=== PATIENT | male | born 1990 | race American Indian/Alaskan Native ===

== ENCOUNTER 2021-08-21 03:24 | Emergency (ER) | payer SELFPAY ==
[2021-08-21] MEDS ORDERED: METOCLOPRAMIDE 10 MG/2 ML INJ IV STA (04:33)
[2021-08-21] MEDS ORDERED: KETOROLAC 30 MG/1 ML INJ IV STA (04:33)
[2021-08-21] MEDS ORDERED: SODIUM CHLORIDE 0.9% 1000 ML 1,000 ML IV ONE (04:33)
[2021-08-21] MEDS ORDERED: diphenhydrAMINE 50 MG/ML VIAL IV STA (04:33)
--- NOTE | 2021-08-21 04:35 | Emergency Department Report ---
ED Headache HPI - General Chief Complaint: Chest Pain Stated Complaint: HEAD/STOMACH PAIN DEPRESSION Time Seen by Provider: 08/21/21 04:30 Source: patient - History of Present Illness Timing/Duration: 1 week, waxing and waning Quality: mild, moderate Head Injury Location: frontal, occipital Recent Head Trauma: frequent headaches Associated Symptoms: nausea/vomiting, other (Dizziness). denies: fatigue, f ever/chills, flushing, vision changes, weakness Allergies/Adverse Reactions: Allergies No Known Allergies Allergy (Unverified 08/21/21 03:53) Home Medications: Ambulatory Orders Hyoscyamine Subl [Levsin Sl 0.125 TAB] 0.125 mg SL Q4HR PRN #14 tablet 08/21/21 Ketorolac [Toradol] 10 mg PO Q6H PRN #14 tablet 08/21/21 ED Review of Systems ROS: Stated complaint: HEAD/STOMACH PAIN DEPRESSION Other details as noted in HPI Comment: All other systems reviewed and negative ED Past Medical Hx - Past Medical History Previous Medical History?: Yes Hx Psychiatric Treatment: Yes (Depression Bipolar) - Surgical History Past Surgical History?: No - Medications Home Medications: Home Medications Medication Instructions Recorded Confirmed Last Taken Type Hyoscyamine Subl [Levsin Sl 0.125 0.125 mg SL Q4HR PRN #14 tablet 08/21/21 Unknown Rx TAB] Ketorolac [Toradol] 10 mg PO Q6H PRN #14 tablet 08/21/21 Unknown Rx ED Physical Exam - General Limitations: No Limitations General appearance: alert, in no apparent distress - Head Head exam: Present: atraumatic, normocephalic - Eye Eye exam: Present: normal appearance, PERRL, EOMI. Absent: scleral icterus, nystagmus, periorbital swelling Pupils: Present: normal accommodation - ENT ENT exam: Present: normal exam, normal orophraynx, mucous membranes moist - Neck Neck exam: Present: normal inspection, full ROM. Absent: tenderness, meningismus - Respiratory Respiratory exam: Present: normal lung sounds bilaterally. Absent: respiratory distress, wheezes, rales, decreased breath sounds - Cardiovascular Cardiovascular Exam: Present: regular rate, normal rhythm. Absent: systolic murmur, diastolic murmur, rubs, gallop - GI/Abdominal GI/Abdominal exam: Present: soft, tenderness (Diffuse), normal bowel sounds. Absent: guarding, rebound, hyperactive bowel sounds, bruit - Rectal Rectal exam: Present: deferred - Extremities Exam Extremities exam: Present: normal inspection, normal capillary refill - Back Exam Back exam: Present: normal inspection. Absent: CVA tenderness (R), CVA tenderness (L) - Neurological Exam Neurological exam: Present: alert, oriented X3, CN II-XII intact - Expanded Neurological Exam Expanded Cerebellar function: Romberg: Normal Best Eye Response ([place]): (4) open spontaneously Best Motor Response ([place]): (6) obeys commands Best Verbal Response ([place]): (5) oriented [place] Total: 15 - Psychiatric Psychiatric exam: Present: normal affect, normal mood - Skin Skin exam: Present: warm, dry, intact, normal color. Absent: rash ED Course Vital Signs 08/21/21 05:49 Respiratory 18 Rate ED Medical Decision Making - Lab Data Result diagrams: 08/21/21 05:00 08/21/21 05:00 - Radiology Data Radiology results: [place] [address] Cat Scan Report Signed Patient: KAITLIN CONNELL MR#: [id number] : 1990 Acct:[id number] Age/Sex: 31 / M ADM Date: 08/21/21 Loc: ED Attending Dr: Ordering Physician: BRAD MAYO Date of Service: 08/21/21 Procedure(s): CT head/brain wo con Accession Number(s): [id number] cc: BRAD MAYO CT HEAD WITHOUT CONTRAST INDICATION / CLINICAL INFORMATION: severe headache. TECHNIQUE: All CT scans at this location are performed using CT dose reduction for ALARA by means of automated exposure control. COMPARISON: None available. FINDINGS: No acute intracranial hemorrhage. Ventricles are normal in size without midline shift or mass effect. No extra-axial fluid collection is seen. Visualized orbits appear normal. ADDITIONAL FINDINGS: None. IMPRESSION: 1. No acute intracranial abnormality. Signer Name: Danilo Calle MD Signed: 08/21/2021 5:39 AM Workstation Name: [id number] Transcribed By: CW Dictated By: EVENS CALLE MD Electronically Authenticated By: EVENS CALLE MD Signed Date/Time: 08/21/21538 DD/ 7 TD/TT: Print Cancel - Medical Decision Making Problem 1 headache This patient presents with a headache most consistent with nonemergent headache. Differential diagnosis includes migraine versus tension type headache. No headache red flags. Neurologic exam without evidence of meningismus, focal neurologic findings.Based on the patient's history and physical there is very low clinical suspicion for significant intracranial pathology. The headache was NOT sudden onset, NOT maximal at onset, there are NO neurologic findings, the patient does NOT have a fever, the patient does NOT have any jaw claudication, the patient does NOT endorse a clotting disorder, patient DENIES any trauma or eye pain and the headache is NOT associated with dizziness or ataxia. Presentation not consistent with acute intracranial bleed to include SAH (lack of risk factors, headache history). Presentation not consistent with acute HEADER DOCK infection to include meningitis or brain abscess, Temporal arteritis unlikely, as is acute angle closure glaucoma given history and physical findings. Presentation not consistent with other acute, emergent causes of headache at is time. Plan to treat symptomatically with pain medication. No indication for imaging/LP at this time. Plan: pain medication, serial reassessment Problem 2 nausea The cause of the patient symptoms not clear but the patient is overall well- appearing and suspected to have a transient course of illness. Given the course and examination does not appear to be an emergent cause of the symptoms such as small bowel obstruction, coronary syndrome, bowel ischemia, DKA, pancreatitis, appendicitis, other acute abdomen or other emergent problem. Reassessment after treatment the patient is feeling much much better tolerating p.o. fluids and shows no signs of any dehydration. Disposition discharge home with prompt primary care physician follow-up in the next 24 hours strict return precautions were discussed Critical care attestation.: If time is entered above; I have spent that time in minutes in the direct care of this critically ill patient, excluding procedure time. ED Disposition Clinical Impression: Normal CT scan of head, Headache, Abdominal pain, Nausea Disposition: 01 HOME / SELF CARE / HOMELESS Is pt being admited?: No Does the pt Need Aspirin: No Condition: Stable Instructions: Nausea and Vomiting, Adult, [id number], Nausea and Vomiting, Adult, Form - Headache Record, General Headache Without Cause, Abdominal Pain, Adult, [id number] Additional Instructions: You have been evaluated emergency department today for abdominal pain. Your evaluation did not show evidence of any medical conditions requiring emergent intervention at this time. Your lipase was it was elevated but not to a significant degree significant pancreatitis does not appear to be present at this time please drink plenty of fluids. Please schedule an appointment with your primary care physician. Return to emergency department if you experience worsening uncontrolled pain, fevers of 100.4 or greater, recurrent vomiting, inability to tolerate food or fluids by mouth, bloody stools or vomit, black tarry stools, or any other concerning symptoms. You have been evaluated in the emergency department today for headache. Your evaluation did not show evidence of medical conditions requiring emergent intervention at this time, and your pain improved with medication. We recommend that you take Motrin and Tylenol as needed for your pain. If needed you can alternate these medications so that you take 1 every 3 hours. To be sure to follow-up with your primary care provider within 2 days for Return to emergency department if you experience worsening uncontrolled pain, vision changes, recurrent vomiting, difficulty with normal activities, abnormal behavior, difficulty walking, numbness, weakness, or any other concerning symptoms. Prescriptions: Hyoscyamine Subl [Levsin Sl 0.125 TAB] 0.125 mg SL Q4HR PRN #14 tablet PRN Reason: Spasms Ketorolac [Toradol] 10 mg PO Q6H PRN #14 tablet PRN Reason: Pain Referrals: GAETANO DIAZ MD [Staff Physician] - 3-5 Days BRYAN NUÑEZ MD [Staff Physician] - 3-5 Days
[2021-08-21 04:57] LABS: Bilirubin,Urine NEG (Negative); Blood,Urine SM (Negative); Color,Urine Yellow (Yellow); Mucus,Urine 1+ /HPF; Protein,Urine <15 mg/dL mg/dL (Negative); Urobilinogen,Urine < 2.0 mg/dL (<2.0)
[2021-08-21 05:21] LABS: Basophils % (Auto) 0.5 % (0.0-1.8); Eosinophils # (Auto) 0.3 K/mm3 (0.0-0.4); Eosinophils % (Auto) 4.1 % (0.0-4.3); Hematocrit 46.8 % (35.5-45.6); Hemoglobin 15.3 gm/dl (11.8-15.2); Lymphocytes # (Auto) 2.3 K/mm3 (1.2-5.4); Lymphocytes % (Auto) 33.8 % (13.4-35.0); Mean Corpuscular HGB Conc 33 % (32-34); Mean Corpuscular Volume 92 fl (84-94); Monocytes # (Auto) 0.8 K/mm3 (0.0-0.8); Monocytes % (Auto) 12.4 % (0.0-7.3); Red Blood Count 5.09 M/mm3 (3.65-5.03); Red Cell Distribution Width 14.1 % (13.2-15.2)
[2021-08-21 05:24] LABS: Platelet Count 157 K/mm3 (140-440)
[2021-08-21 05:38] LABS: Alanine Aminotransferase 8 units/L (7-56); Albumin 4.3 g/dL (3.9-5); BUN/Creatinine Ratio 8; Blood Urea Nitrogen 7 mg/dL (9-20); Hemolysis Index 5
--- NOTE | 2021-08-21 05:43 | Cat Scan Report ---
CT HEAD WITHOUT CONTRAST INDICATION / CLINICAL INFORMATION: severe headache. TECHNIQUE: All CT scans at this location are performed using CT dose reduction for ALARA by means of automated e xposure control. COMPARISON: None available. FINDINGS: No acute intracranial hemorrhage. Ventricles are normal in size without midline shift or mass effect. No extra-axial fluid collection is seen. Visualized orbits appear normal. ADDITIONAL FINDINGS: None. IMPRESSION: 1. No acute intracranial abnormality. Signer Name: Danilo Calle MD Signed: 08/21/2021 5:39 AM Workstation Name: [id number]
== END 2021-08-21 07:25 | disposition home or self-care (01) ==
LOC: ED 03:24
DX: R51.9 Headache, unspecified (principal); R10.9 Unspecified abdominal pain; R11.2 Nausea with vomiting, unspecified; F31.9 Bipolar disorder, unspecified
CPT/HCPCS: 36415; 70450; 80053; 81001; 83690; 85025; 96361; 96374; 96375; 99284; J1200; J1885; J2765; J7030

== ENCOUNTER 2021-10-12 17:04 | Emergency (ER) | payer SELFPAY ==
[2021-10-12] MEDS ORDERED: MORPHINE 4 MG/1 ML INJ IV ONE ×3 (17:07→20:54)
[2021-10-12] MEDS ORDERED: ONDANSETRON 4 MG/2 ML INJ IV ONE (17:07)
[2021-10-12] MEDS ORDERED: SODIUM CHLORIDE 0.9% 1000 ML 1,000 ML IV ONE (17:07)
[2021-10-12] MEDS ORDERED: TETANUS,DIPHTHERIA TOXOID ADULT 0.5 ML INJ IM ONE (17:08)
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
[2021-10-12 18:03] LABS: Basophils % (Auto) 0.5 % (0.0-1.8); Eosinophils # (Auto) 0.1 K/mm3 (0.0-0.4); Eosinophils % (Auto) 1.3 % (0.0-4.3); Hematocrit 51.7 % (35.5-45.6); Hemoglobin 17.1 gm/dl (11.8-15.2); Lymphocytes # (Auto) 2.2 K/mm3 (1.2-5.4); Lymphocytes % (Auto) 24.6 % (13.4-35.0); Mean Corpuscular HGB Conc 33 % (32-34); Mean Corpuscular Volume 91 fl (84-94); Monocytes # (Auto) 0.7 K/mm3 (0.0-0.8); Monocytes % (Auto) 8.3 % (0.0-7.3); Platelet Count 150 K/mm3 (140-440); Red Blood Count 5.71 M/mm3 (3.65-5.03); Red Cell Distribution Width 14.7 % (13.2-15.2)
[2021-10-12 18:25] LABS: Alanine Aminotransferase 19 units/L (7-56); Albumin 4.4 g/dL (3.9-5); BUN/Creatinine Ratio 14; Blood Urea Nitrogen 14 mg/dL (9-20); Calcium 9.4 mg/dL (8.4-10.2); Hemolysis Index 48
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
[2021-10-12] MEDS ORDERED: LIDOCAINE 2%/EPINEPHRINE 1:200,000 VIAL (20 ML) INFILTRATI ONE (19:34)
[2021-10-12] MEDS ORDERED: WATER FOR IRRIG STERILE 1,000 ML BOTTLE IR ONE (19:34)
[2021-10-12] MEDS ORDERED: SODIUM CHLORIDE IRRI 500 ML 500 ML IR ONE (20:29)
[2021-10-12] MEDS ORDERED: MORPHINE 4 MG/1 ML INJ ONE (20:48)
[2021-10-12] MEDS ORDERED: HYDROcodone/ACETAMINOPHEN 5-325 MG TAB PO ONE (21:50)
[2021-10-12 21:58] VITALS: BP 138/88
== END 2021-10-12 22:10 | disposition home or self-care (01) ==
LOC: ED 17:04
DX: S51.811A Laceration without foreign body of right forearm, initial encounter (principal); F31.9 Bipolar disorder, unspecified; Z79.899 Other long term (current) drug therapy; W34.00XA Accidental discharge from unspecified firearms or gun, initial encounter; Y93.89 Activity, other specified; Y92.89 Other specified places as the place of occurrence of the external cause; Y99.8 Other external cause status
CPT/HCPCS: 12034; 36415; 73090; 73206; 80053; 85025; 90471; 90714; 96365; 96375; 96376; 99284; J0690; J2270; J2405; J3490; J7030; Q9967; Q0162

== ENCOUNTER 2022-02-26 17:39 | Emergency (ER) | payer SELFPAY ==
[2022-02-26 19:29] VITALS: BP 153/114
== END 2022-02-26 22:58 | disposition left against medical advice (07) ==
LOC: ED 17:39
DX: R10.9 Unspecified abdominal pain (principal); Z76.0 Encounter for issue of repeat prescription; Z53.21 Procedure and treatment not carried out due to patient leaving prior to being seen by health care provider